=== PATIENT | female | born 2000 | race Caucasian/White ===

== ENCOUNTER 2023-06-26 10:53 | Outpatient (CLI) | payer OTHER, SELFPAY ==
--- NOTE | 2023-06-26 11:04 | US_ITS ---
WS: [id number] RIGHT 3D TOMOSYNTHESIS DIGITAL MAMMOGRAPHY WITH CAD CLINICAL INFORMATION: RT BR LUMP HISTORY: RIGHT breast lump COMPARISON: 2019 TECHNIQUE: 3 views of the right breast were obtained. FINDINGS: Scattered fibroglandular densities of the right breast. Palpable marker anterior RIGHT breast. Deep t o the palpable marker is a macrolobulated dense lesion measuring approximately 6.1 x 4.7 cm. No other suspicious abnormalities. Ultrasound described below. ULTRASOUND BREAST RIGHT TECHNIQUE: Ultrasound right breast focused area of concern. CLINICAL INFORMATION: RT BR LUMP COMPARISON: Ultrasound 2019 FINDINGS: Lobulated solid hypoechoic mass in the area of palpable concern at the 10:00 position 3 cm from the n ipple. This measures 5.8 x 5.4 x 3.3 cm. This may represent a giant fibroadenoma or hamartoma but sarahi hnically indeterminant and recommend further evaluation with ultrasound-guided biopsy. Phyllodes tumo r is an additional less likely consideration in this age group. This is increased in size since 2019. A few associated punctate calcifications. US/US breast RT limited* [id number] IMPRESSION: BI-RADS: 4-Suspicious Finding-Biopsy Should Be Considered FOLLOW UP: US Guided Biopsy Recommended Recommend ultrasound-guided biopsy in further evaluation.
--- NOTE | 2023-06-26 11:25 | MM_ITS ---
WS: [id number] RIGHT 3D TOMOSYNTHESIS DIGITAL MAMMOGRAPHY WITH CAD CLINICAL INFORMATION: RT BR LUMP HISTORY: RIGHT breast lump COMPARISON: 2019 TECHNIQUE: 3 views of the right breast were obtained. FINDINGS: Scattered fibroglandular densities of the right breast. Palpable marker anterior RIGHT breast. Deep t o the palpable marker is a macrolobulated dense lesion measuring approximately 6.1 x 4.7 cm. No other suspicious abnormalities. Ultrasound described below. ULTRASOUND BREAST RIGHT TECHNIQUE: Ultrasound right breast focused area of concern. CLINICAL INFORMATION: RT BR LUMP COMPARISON: Ultrasound 2019 FINDINGS: Lobulated solid hypoechoic mass in the area of palpable concern at the 10:00 position 3 cm from the n ipple. This measures 5.8 x 5.4 x 3.3 cm. This may represent a giant fibroadenoma or hamartoma but sarahi hnically indeterminant and recommend further evaluation with ultrasound-guided biopsy. Phyllodes tumo r is an additional less likely consideration in this age group. This is increased in size since 2019. A few associated punctate calcifications. MM/[place] [id number] IMPRESSION: BI-RADS: 4-Suspicious Finding-Biopsy Should Be Considered FOLLOW UP: US Guided Biopsy Recommended Recommend ultrasound-guided biopsy in further evaluation.
== END 2023-06-26 10:54 | disposition home or self-care (01) ==
PROVIDERS: PCP Family Medicine; Visit Provider Family Medicine
DX: N63.11 Unspecified lump in the right breast, upper outer quadrant (principal)
CPT/HCPCS: 76642; 77061; G0279

== ENCOUNTER 2023-07-19 11:55 | Outpatient (CLI) | payer OTHER, SELFPAY ==
--- NOTE | 2023-07-19 12:11 | US_ITS ---
WS: [id number] ULTRASOUND-GUIDED RIGHT BREAST BIOPSY HISTORY: RIGHT breast mass. COMPARISON: 06/26/2023 Procedure, risks and complications are explained to the patient. Medications are reviewed. Consent is obtained. The mass in the RIGHT breast is localized with ultrasound. Large mass localizes to 10:00. Skin is tristan ansed with ChloraPrep and anesthetized with 1% buffered lidocaine. Small dermatome is made. Under enrique rile conditions mass is biopsied with a 14-gauge Achieve needle. Multiple core biopsies are performed . Material placed in formalin and sent to pathology for review. No complications encountered. Breast tissue marker ([employer] ultrasound enhanced ribbon): Single. Patient left the radiology suite with no complications. Patient is instructed to [place] [facility] with any concerns. IMPRESSION: 1. Uncomplicated core needle biopsy RIGHT breast mass biopsy at 10:00. 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 RECOMMENDATION: Follow-up with primary caregiver. No additional imaging necessa ry. Consider surgical removal.
== END 2023-07-19 11:56 | disposition home or self-care (01) ==
PROVIDERS: PCP Family Medicine; Visit Provider Family Medicine
DX: D24.1 Benign neoplasm of right breast (principal); N63.11 Unspecified lump in the right breast, upper outer quadrant
CPT/HCPCS: 19083; 88305

== ENCOUNTER 2024-05-20 02:13 | Emergency (ER) | payer OTHER, SELFPAY ==
[2024-05-20 02:17] VITALS: BP 147/105; PULSE 94; RESP 18; TEMP 37.1; O2SAT 99; BMI 38.6
--- NOTE | 2024-05-20 02:18 | XRR_ITS ---
PROCEDURE INFORMATION: Exam: XR Left Foot Exam date and time: 05/20/2024 2:28 AM Age: 24 years old Clinical indication: Toes; Patient HX: C/O left great toe pain. No injury. ; Additional info: Left foot/great toe pain TECHNIQUE: Imaging protocol: Radiologic exam of the left foot. Views: 3 or more views. COMPARISON: No relevant prior studies available. FINDINGS: Bones/joints: There is no acute fracture or dislocation. If symptoms persist, follow-up imaging in several days may be useful to exclude an occult or subtle fracture. Soft tissues: No visible/definite radiopaque soft tissue foreign body. XR/XR foot LT min 3V* [id number] IMPRESSION: No acute fracture or dislocation.
[2024-05-20 02:40] VITALS: BP 147/97; PULSE 87; RESP 18; O2SAT 99
--- NOTE | 2024-05-20 03:16 | ED_ITS ---
HPI - Extremity Problem General: Chief complaint: Extremity Injury, Lower Stated complaint: left foot injury around big toe Time Seen by Provider: 05/20/24 02:51 History of Present Illness: 24-year-old female who is left great toe began to hurt at the MTP a couple days ago. Pain seems nontraumatic. She notes it was worsened by walking at work tonight. No fever. No streaking redness. No insect bites, etc. No prior history of gout. Associated symptoms: Deny fever(s) or rash Review of Systems Const: Denies: fever(s) or chills Card: Denies: swelling of feet/ankles GI: Denies: vomiting Musc: Denies: back pain Skin/Breast: Denies: rash Physical Exam Const: COMMON NORMALS: no acute distress GENERAL APPEARANCE: cooperative; not ill appearing and not frail appearing Eye: COMMON NORMALS: Equal, round and reactive pupils present and EOMs intact bilaterally PUPIL: Yes Equal, round and reactive pupils present Neck/C-Spine: GENERAL: Yes trachea midline Chest: CHEST: Yes Symmetrical chest wall rise Resp: COMMON NORMALS: normal respiratory effort, No retractions and No use of accessory muscles Cardio: COMMON NORMALS: regular rate and regular rhythm RATE: regular rate RHYTHM: regular rhythm GI: COMMON NORMALS: Normal to inspection, nondistended, normoactive bowel sounds present Extremity: COMMON NORMALS: no pedal edema NARRATIVE EXTREMITY EXAM: Exam the left foot reveals no redness or warmth. There is tenderness over the left first MTP. No deformity. There is pain on grind testing. Pulses are normal. Sensation is normal. Neuro: LUNA COMA SCALE: document GCS findings Luna coma scale eye opening: Spontaneous [place] coma scale verbal response: Orientated Luna coma scale motor response: Obey commands [place] coma scale total score: 15 SENSORY EXAM: Yes extremities (intact) Psych: COMMON NORMALS: speech normal SPEECH: Yes normal speech Skin: COMMON NORMALS: no rashes or lesions noted GENERAL SKIN EXAM: no rashes or lesions noted Course Vital Signs: Vital signs: Vital Signs Temperature 98.7 F 05/20/24 02:17 Pulse Rate 89 05/20/24 03:29 Respiratory Rate 18 05/20/24 03:29 Blood Pressure 152/91 05/20/24 03:29 Pulse Oximetry 99 05/20/24 03:29 Oxygen Delivery Me thod Room Air 05/20/24 02:40 MDM - Extremity (Nontraumatic) Medical Decision Making Essentially nontraumatic left first MTP pain in a healthy patient. Doubt gout in this clinical setting, as it does not appear overly inflamed x-ray is normal. Will prescribe some indomethacin. If repeated episodes, will need testing for gout. She is stable for discharge. XR interpretation done by ED provider, pending radiology final review Discharge Plan Discharge Patient Disposition: Home Clinical Impression: Pain of left great toe Condition: Stable Prescriptions: New indomethacin 50 mg capsule 50 mg PO TID Qty: 20 0RF Rx Instructions: administer with food or milk Discharge Orders: Discharge ED (Routine); Ordered 05/20/24 Ordered By: Andrew Dumont Referrals: Sarah Rich MD [Primary Care Provider] - 4-7 days Patient Instructions: Opioid Safety, Pain Management Activity Restrictions/Additional Instructions: Return for fever, streaking redness, worsening pain despite treatment, other concerning symptoms. Medication as directed. Do not take medication if you believe you are . Follow-up with your doctor later this week. If pain improves, then returns, other patient testing may be needed. Stand Alone Forms: Work/School Release Coding Level of Care Code ED Yard Stocker for Braxton Siu
[2024-05-20 03:29] VITALS: BP 152/91; PULSE 89; RESP 18; O2SAT 99
[2024-05-20] MEDS: ketorolac 10 mg Tablet PO (03:29)
== END 2024-05-20 03:30 | disposition home or self-care (01) ==
PROVIDERS: Emergency Provider Emergency Medicine; PCP Family Medicine
DX: M79.675 Pain in left toe(s) (principal)
CPT/HCPCS: 73630; 99283